=== PATIENT | female | born 1970 | race Caucasian/White ===

== ENCOUNTER 2016-08-27 15:45 | Emergency (ER) | payer MEDICAID ==
[~2016-08-27] VITALS: Ht 160 cm; Wt 67.5 kg
[2016-08-27 15:47] VITALS: Ht 160 cm; Wt 67.5 kg
[2016-08-27] MEDS ORDERED: HYDROCODONE/APAP (5/325) TAB PO ONE (17:30)
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
--- NOTE | 2016-08-27 18:24 | RADRPT ---
PROCEDURE: XR Hand. CLINICAL INDICATION: Pain TECHNIQUE: AP, oblique and lateral views of the left hand were obtained. COMPARISON: No prior studies are available for comparison. FINDINGS: Three views of the left hand demonstrate no displaced fracture. No gross malalignment is seen. The re is no significant degenerative change. Bones are normally mineralized. The soft tissues are unr emarkable. IMPRESSION: No acute fracture dislocation. RPTAT: HH .Enrique Hickey MD, Date Time Electronically viewed and signed by .Enrique Hickey MD, on 08/27/2016 18:23 .W/
[2016-08-27] MEDS ORDERED: IBUP-1542 PO (18:30)
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
[2016-08-27 18:58] VITALS: BP 110/64; PULSE 70; RESP 16
== END 2016-08-27 18:59 | disposition home or self-care (01) ==
LOC: FTE 15:45
DX: S29.9XXA Unspecified injury of thorax, initial encounter (principal); S16.1XXA Strain of muscle, fascia and tendon at neck level, initial encounter; S63.92XA Sprain of unspecified part of left wrist and hand, initial encounter; V43.52XA Car driver injured in collision with other type car in traffic accident, initial encounter
CPT/HCPCS: 71020; 72125; 73130; Z7502; Z7610